=== PATIENT | male | born 2000 | race Hispanic/Latino ===

== ENCOUNTER 2023-07-24 01:21 | Emergency (ER) | payer SELFPAY ==
[2023-07-24] MEDS ORDERED: Lidocaine 1% PF 5 ML VIAL ONE (02:41)
== END 2023-07-24 03:05 ==
LOC: ERS 01:21
DX: S61.411A Laceration without foreign body of right hand, initial encounter (principal); W25.XXXA Contact with sharp glass, initial encounter
CPT/HCPCS: 90471

== ENCOUNTER 2023-07-24 04:28 | Emergency (ER) | payer SELFPAY ==
[2023-07-24] MEDS ORDERED: Boostrix 0.5 ML (Tdap) VIAL (>/=7 yrs of age) ONE (04:41)
== END 2023-07-24 05:14 ==
LOC: ERS 04:28
DX: S61.411A Laceration without foreign body of right hand, initial encounter (principal); X58.XXXA Exposure to other specified factors, initial encounter; Z23 Encounter for immunization
CPT/HCPCS: 12001; 90471; 90715